=== PATIENT | female | born 2000 | race Caucasian/White ===

== ENCOUNTER 2019-04-28 16:47 | Emergency (ER) | payer SELFPAY ==
[2019-04-28] MEDS ORDERED: Clindamycin HCl 150 MG Cap PO ONE (16:48)
[2019-04-28] MEDS ORDERED: Take Home: Clindamycin HCl 150 MG Cap, 6 Cap Pack PO ONE (17:09)
--- NOTE | 2019-04-28 17:16 | EDM.PDOC ---
ED HPI GENERAL MEDICAL PROBLEM - General Chief Complaint: ENT Problem Stated Complaint: SORE THROAT Time Seen by Provider: 04/28/19 17:00 Source of Information: Reports: Patient History Limitations: Reports: No Limitations - History of Present Illness INITIAL COMMENTS - FREE TEXT/NARRATIVE: This patient reports since midnight having sore throat that hurts to eat and drink. The patient reports she has white stuff in her mouth. Onset: Today Onset Date: 04/28/19 Onset Time: 00:00 Severity: Mild Improves with: Reports: None Worsens with: Reports: Eating Associated Symptoms: Reports: No Other Symptoms. Denies: Confusion, Chest Pain , Cough, cough w sputum, Diaphoresis, Fever/Chills, Headaches, Loss of Appetite , Malaise, Nausea/Vomiting, Rash, Seizure, Shortness of Breath, Syncope, Weakness Throat Pain Score (Numeric/FACES): 7 - Related Data Allergies Allergy/AdvReac Type Severity Reaction Status Date / Time Penicillins Allergy Hives Verified 04/28/19 16:48 Home Meds: Home Meds . [No Known Home Meds] 04/28/19 [History] Past Medical History - Past Health History Medical/Surgical History: Denies Medical/Surgical History Social & Family History - Family History Family Medical History: Noncontributory - Tobacco Use Smoking Status *Q: Never Smoker - Recreational Drug Use Recreational Drug Use: No ED ROS ENT - Review of Systems Review Of Systems: See Below Constitutional: Reports: No Symptoms. Denies: Fever HEENT: Reports: Throat Pain. Denies: Rhinitis, Sinus Problem Respiratory: Reports: No Symptoms Cardiovascular: Reports: No Symptoms Endocrine: Reports: No Symptoms GI/Abdominal: Reports: No Symptoms : Reports: No Symptoms Musculoskeletal: Reports: No Symptoms Skin: Reports: No Symptoms Neurological: Reports: No Symptoms Psychiatric: Reports: No Symptoms Hematologic/Lymphatic: Reports: No Symptoms Immunologic: Reports: No Symptoms ED EXAM, ENT - Physical Exam Exam: See Below Exam Limited By: No Limitations General Appearance: Alert, WD/WN, No Apparent Distress Eye Exam: Bilateral Eye: Normal Inspection Ears: Normal External Exam, Normal Canal, Hearing Grossly Normal, Normal TMs Nose: Normal Inspection, Normal Mucousa, No Blood Mouth/Throat: Normal Inspection, Normal Gums, Normal Lips, Normal Teeth, Pharyngeal Erythema, Throat Pain, Tonsillar Erythema, Tonsillar Exudates, Tonsillar Swelling. No: Bleeding, Dental Abcess, Dental Pain, Dental Tenderness , Drooling, Dry Mucous Membrane, Gum Swelling, Hoarse Voice, Lip Swelling, Lip Ulcers, Muffled Voice, Oral Ulcers, Perioral Cyanosis, Peritonsillar Mass, Throat Swelling, Tongue Swelling, Uvular Deviation, Uvular Edema Head: Atraumatic, Normocephalic Neck: Supple, Full Range of Motion, Lymphadenopathy (L), Lymphadenopathy (R), Tender Lateral Respiratory/Chest: No Respiratory Distress, Lungs Clear, Normal Breath Sounds, No Accessory Muscle Use Cardiovascular: Normal Peripheral Pulses, Regular Rate, Rhythm, No Edema, No Gallop, No JVD, No Murmur, No Rub Neurological: Alert, Oriented Psychiatric: Normal Affect, Normal Mood Skin: Warm, Dry, Intact, Normal Color, No Rash Lymphatic: Adenopathy (Mild anterior cervical) Course - Vital Signs Last Recorded V/S: Last Vital Signs Temp 97.8 F 04/28/19 16:48 Pulse 85 04/28/19 16:48 Resp 16 04/28/19 16:48 BP 125/77 04/28/19 16:48 Pulse Ox 100 04/28/19 16:48 - Orders/Labs/Meds Orders: Active Orders 24 hr Category Date Time Status clindamycin HCL [Take Home: Clindamycin HCl 150 MG, 6 Med 04/28/19 17:09 Once Cap Pack] 2 packet PO ONETIME ONE Departure - Departure Time of Disposition: 17:11 Disposition: Home, Self-Care 01 Condition: Fair Clinical Impression: Pharyngitis Qualifiers: Pharyngitis/tonsillitis etiology: unspecified etiology Qualified Code(s): J02.9 - Acute pharyngitis, unspecified - Discharge Information *PRESCRIPTION DRUG MONITORING PROGRAM REVIEWED*: Not Applicable *COPY OF PRESCRIPTION DRUG MONITORING REPORT IN PATIENT MARIAN: Not Applicable Instructions: Strep Throat, [id number] Additional Instructions: Followup with your primary care provider Return to the ER for worsening of condition or any emergent concerns Clindamycin 300mg 1 pill three times a day start Tuesday for 8 days #24 no refill Clindamycin 150mg 2 pills three times a day given in the ER for days total #12 no refill (Start this today) Tylenol or Motrin for fever or pain Sepsis Event Note - Evaluation Sepsis Screening Result: No Definite Risk - Focused Exam Vital Signs: Vital Signs Temp Pulse Resp BP Pulse Ox 04/28/19 16:48 97.8 F 85 16 125/77 100 Date Exam was Performed: 04/28/19 Time Exam was Performed: 17:11 - My Orders Last 24 Hours: My Active Orders 04/28/19 17:09 clindamycin HCL [Take Home: Clindamycin HCl 150 MG, 6 Cap Pack] 2 packet PO ONETIME ONE - Assessment/Plan Last 24 Hours: My Active Orders 04/28/19 17:09 clindamycin HCL [Take Home: Clindamycin HCl 150 MG, 6 Cap Pack] 2 packet PO ONETIME ONE Plan: PLEASE SEE RN NOTE FOR PFSH
== END 2019-04-28 17:20 | disposition home or self-care (01) ==
LOC: CC.ED 16:47
DX: J02.9 Acute pharyngitis, unspecified (principal); Z88.0 Allergy status to penicillin
CPT/HCPCS: 99282; A9270-GY